=== PATIENT | male | born 1960 | race Hispanic/Latino ===

== ENCOUNTER → 2019-07-11 | Outpatient (CLI) | payer BC | END | disposition home or self-care (01) | LOC: RAH 11:01 | PROVIDERS: ATTEND Family Medicine | DX: M47.892 Other spondylosis, cervical region (principal); M99.79 Connective tissue and disc stenosis of intervertebral foramina of abdomen and other regions; H70.91 Unspecified mastoiditis, right ear | CPT/HCPCS: 72125 ==

== ENCOUNTER 2019-09-20 14:00 | Inpatient (IN) | payer BC ==
[~2019-09-20] VITALS: Ht 172.7 cm; Wt 86.0 kg
[2019-09-20 12:45] VITALS: BP 153/70; PULSE 69; RESP 17; TEMP 97
[2019-09-25] VITALS (14 sets, daily range): BP systolic 122–186; BP diastolic 45–69; PULSE 67–97; RESP 11–29; TEMP 98–98.9; O2SAT 98–100
[2019-09-25] MEDS: CEFUROXIME SODIUM 1.5 GM VIAL IVP SCH ×2 (06:00→14:45)
[2019-09-25] MEDS ORDERED: EPINEPHRINE 10 MG in SODIUM CHLORIDE 0.9% 240 ML IV PRN (06:30)
[2019-09-25] MEDS ORDERED: NOREPINEPHRINE BITARTRATE 8 MG in DEXTROSE 5%-WATER 250 ML IV PRN ×2 (06:30→17:45)
[2019-09-25] MEDS ORDERED: AMINOCAPROIC ACID 15,000 MG in SODIUM CHLORIDE 0.9% 500ML 420 ML IV PRN (06:30)
[2019-09-25] MEDS ORDERED: SODIUM CHLORIDE 0.9% 1000ML 1,000 ML IV ONE (06:42)
--- NOTE | 2019-09-25 07:04 | NUR ---
potential for infection: clipped from chin to bilateral feet per anne-marie verduzco as per orders, followed by wiping with rachelle: 2% chlorhexidine gluconate cloth patients pre-op skin prep.
[2019-09-25] MEDS ORDERED: NITROGLYCERIN 50 MG/D5% WATER 1 BOT ONE ×2 (09:09→17:46)
[2019-09-25] MEDS ORDERED: AMINOCAPROIC ACID 250 MG/ML 20 ML VIAL IV ONE (14:42)
[2019-09-25] MEDS ORDERED: ESMOLOL HCL 10 MG/ML 10 ML VIAL ONE (14:42)
[2019-09-25] MEDS ORDERED: PROTAMINE SULFATE 10 MG/ML 25ML VIAL IV ONE (14:42)
[2019-09-25] MEDS ORDERED: LIDOCAINE PF 2% 5ML ABBOJECT ONE (14:42)
[2019-09-25] MEDS ORDERED: NOREPINEPHRINE BITARTRATE 1 MG/1 ML ML IV ONE (14:42)
[2019-09-25] MEDS ORDERED: EPINEPHRINE 1 MG/ML AMPULE ONE (14:42)
[2019-09-25] MEDS ORDERED: HEPARIN SODIUM 1000UNIT/ML 10ML VIAL ONE (14:42)
[2019-09-25] MEDS ORDERED: SODIUM BICARB 50MEQ 50ML VIAL ONE (14:42)
[2019-09-25] MEDS ORDERED: ROCURONIUM 10MG/1ML SYR 10 MG/ML ML ONE (14:43)
[2019-09-25] MEDS ORDERED: VASOPRESSIN 20 UNITS/ML 1ML VIAL ONE (14:43)
[2019-09-25] MEDS ORDERED: FENTANYL CITRATE PF 50 MCG/1 ML 20ML VIAL IJ ONE (14:43)
[2019-09-25] MEDS ORDERED: MIDAZOLAM HCL 1 MG/ML 2ML VIAL ONE (14:43)
[2019-09-25] MEDS ORDERED: PROPOFOL 10 MG/ML 20ML VIAL IV ONE (14:43)
[2019-09-25] MEDS ORDERED: AMIODARONE HCL 50 MG/ML 3 ML VIAL ONE (14:44)
[2019-09-25] MEDS ORDERED: ETOMIDATE 2 MG/ML 10 ML VIAL ONE (14:44)
[2019-09-25] MEDS ORDERED: PAPAVERINE HCL 30 MG/ML 2ML VIAL ONE (15:19)
[2019-09-25] MEDS ORDERED: CEFAZOLIN SODIUM 1 GM VIAL ONE (15:19)
[2019-09-25] MEDS ORDERED: OCTYL 2-CYANOACRYLATE 1 EACH TP ONE (15:19)
[2019-09-25] MEDS ORDERED: FENTANYL CITRATE PF 50 MCG/1 ML 5ML AMP IV ONE (17:04)
[2019-09-25] MEDS ORDERED: SODIUM CHLORIDE 0.9% 500ML 500 ML IV SCH (17:10)
[2019-09-25] MEDS ORDERED: POTASSIUM CHLORIDE 20MEQ/100ML 200 ML IV ONE (17:14)
[2019-09-25] MEDS ORDERED: EPINEPHRINE 10 MG in DEXTROSE 5%-WATER 250 ML IV PRN (17:15)
[2019-09-25] MEDS ORDERED: POTASSIUM PHOS 15 mMOL+NS250ML 250 ML IV PRN (17:15)
[2019-09-25] MEDS ORDERED: ALBUMIN (HUMAN) 5% 250 ML IV PRN (17:15)
[2019-09-25] MEDS ORDERED: NOREPINEPHRINE 4MG/NS 250ML 250 ML IV PRN (17:15)
[2019-09-25] MEDS ORDERED: INSULIN REGULAR, HUMAN 3ML 100 UNIT in SODIUM CHLORIDE 0.9% 99 ML IV SCH (17:15)
[2019-09-25] MEDS ORDERED: TRAMADOL HCL 50 MG TABLET PO PRN (17:15)
[2019-09-25] MEDS ORDERED: SODIUM CHLORIDE 0.9% 1000ML 1,000 ML IV SCH (17:15)
[2019-09-25] MEDS ORDERED: MAGNESIUM 2GM PREMIX 50ML 50 ML IV PRN (17:15)
[2019-09-25] MEDS ORDERED: GLUCAGON 1MG KIT 1 MG ML IM PRN (17:15)
[2019-09-25] MEDS ORDERED: SODIUM CHLORIDE 0.9% 250 ML IV PRN (17:15)
[2019-09-25] MEDS ORDERED: AMINOCAPROIC ACID 15,000 MG in SODIUM CHLORIDE 0.9% 250 ML IV SCH (17:15)
[2019-09-25] MEDS ORDERED: SODIUM CHLORIDE 0.9% 10 ML VIAL IVP PRN (17:15)
[2019-09-25] MEDS ORDERED: MORPHINE SULFATE 2 MG/ML 1ML SYG IV PRN ×2 (17:15)
[2019-09-25] MEDS ORDERED: DEXTROSE 50%-WATER 50 ML DISP.SYRIN IV PRN (17:15)
[2019-09-25] MEDS ORDERED: PROPOFOL 1000 MG/100 ML 100 ML IV PRN (17:15)
[2019-09-25] MEDS ORDERED: ACETAMINOPHEN 650 MG SUPPOSITORY RC PRN (17:15)
--- NOTE | 2019-09-25 17:35 | NUR ---
Patient arrived from OR at 1735 into room 213 intubated and sedated with chest tubes and aguilar in place. RIJ has Epi running at 0.02 mcg/kg/min, Levofed at 0.053 mcg/kg/min and amicar at 75 ml/hr. Vital signs as charted.
[2019-09-25] MEDS ORDERED: CALCIUM GLUCONATE 1 GM/10 ML VIAL IV ONE (18:59)
[2019-09-25] MEDS: POTASSIUM CHLORIDE 20MEQ/100ML 100 ML IV PRN ×2 (19:09→22:07)
[2019-09-25] MEDS: CEFAZOLIN SODIUM 1 GM VIAL IV SCH (21:47)
[2019-09-25] MEDS: FAMOTIDINE/PF 20 MG/2 ML VIAL IV SCH (21:47)
[2019-09-25] MEDS: SODIUM BICARB 50MEQ 50ML VIAL IV PRN (21:52)
[2019-09-25] MEDS: ATORVASTATIN CALCIUM 10 MG TABLET PO SCH (22:05)
[2019-09-25] MEDS: TRAMADOL HCL 50 MG TABLET PO PRN (22:06)
[2019-09-25] MEDS: ONDANSETRON HCL 4 MG/2 ML VIAL IV PRN (22:20)
[2019-09-25] MEDS: ACETAMINOPHEN 325 MG TAB PO PRN (23:40)
[2019-09-26] VITALS (63 sets, daily range): BP systolic 113–167; BP diastolic 52–86; PULSE 75–100; RESP 12–47; TEMP 98.2–98.9; O2SAT 96–100
[2019-09-26] MEDS ORDERED: CALCIUM GLUCONATE 1 GM/10 ML VIAL IV ONE ×2 (04:26)
[2019-09-26] MEDS: TRAMADOL HCL 50 MG TABLET PO PRN ×3 (04:34→21:57)
[2019-09-26] MEDS: CEFAZOLIN SODIUM 1 GM VIAL IV SCH ×2 (05:50→14:22)
[2019-09-26] MEDS: CEFUROXIME SODIUM 1.5 GM VIAL IVP SCH (06:00)
[2019-09-26] MEDS: ONDANSETRON HCL 4 MG/2 ML VIAL IV PRN (06:07)
--- NOTE | 2019-09-26 07:55 | NUR ---
DC Plan Met with patient. Currently sitting up in chair. Informed patient purpose of meeting was to discuss discharge plan and patient goals. Patient states lives with Elizabeth. Prior to surgery, patient independently performed ADLs. Denies any HH, DME, or provider services. Patient states discharge plan is to return home with . Informed patient CM will revisit once patient lines/tubes have been removed to ensure plan has not changed. Patient verbalized understanding. Asked patient if there were any other questions or concerns. Patient verbalized was in pain. CM notified bedside nurse of patient's report of pain. No further questions or concerns were verbalized. Tentative dc plan is to home with . CD Addendum: 09/26/19 at 0910 by HONEY YING CM Amended: Links added.
[2019-09-26] MEDS: FAMOTIDINE/PF 20 MG/2 ML VIAL IV SCH ×2 (08:37→21:42)
[2019-09-26] MEDS: FUROSEMIDE 10 MG/ML 2ML VIAL IV SCH ×2 (08:37→21:42)
[2019-09-26] MEDS: ACETAMINOPHEN 325 MG TAB PO PRN ×2 (08:40→10:02)
[2019-09-26] MEDS ORDERED: METOPROLOL TARTRATE 25 MG TAB PO SCH (09:00)
[2019-09-26] MEDS ORDERED: KETOROLAC TROMETHAMINE 30MG/ML ONE (09:58)
[2019-09-26] MEDS: ASPIRIN 325MG EC TAB 325 MG TABLET.DR PO SCH (10:01)
--- NOTE | 2019-09-26 12:00 | NUR ---
DR. REINA CONTACTED AT 0833 DUE TO PT CONTINUING TO HAVE SEVERE PAIN 01/12 EVEN AFTER ADMINISTRATION OF TRAMADOL 100MG. ORDERS FOR TORADOL 30MG IVQ6 WERE GIVEN. PT MEDICATED AND REPORTED LESS PAIN.
[2019-09-26] MEDS: CALCIUM GLUCONATE 1 GM in SODIUM CHLORIDE 0.9% 50 ML IV PRN ×2 (16:40→17:40)
[2019-09-26] MEDS: KETOROLAC TROMETHAMINE 30MG/ML IV PRN (17:44)
[2019-09-26] MEDS: ATORVASTATIN CALCIUM 10 MG TABLET PO SCH (21:42)
[2019-09-26] MEDS: METOPROLOL TARTRATE 25 MG TAB PO SCH (21:42)
[2019-09-27] VITALS (27 sets, daily range): BP systolic 113–184; BP diastolic 50–99; PULSE 69–91; RESP 11–27; TEMP 98.1–99.1; O2SAT 95–100
[2019-09-27] MEDS: KETOROLAC TROMETHAMINE 30MG/ML IV PRN ×3 (01:40→18:33)
[2019-09-27] MEDS: NITROGLYCERIN 50 MG/D5% WATER 250 BOT IV SCH (01:58)
[2019-09-27] MEDS: FAMOTIDINE 20MG TAB 20 MG TAB PO SCH ×2 (08:27→20:14)
[2019-09-27] MEDS: FUROSEMIDE 20 MG TABLET PO SCH ×2 (08:27→17:32)
[2019-09-27] MEDS: ASPIRIN 325MG EC TAB 325 MG TABLET.DR PO SCH (08:27)
[2019-09-27] MEDS: METOPROLOL TARTRATE 25 MG TAB PO SCH ×2 (08:28→20:14)
[2019-09-27] MEDS: TRAMADOL HCL 50 MG TABLET PO PRN (08:29)
[2019-09-27] MEDS ORDERED: METOPROLOL TARTRATE 25 MG TAB PO SCH (09:00)
[2019-09-27] MEDS: ACETAMINOPHEN 325 MG TAB PO PRN (17:33)
[2019-09-27] MEDS: ONDANSETRON HCL 4 MG/2 ML VIAL IV PRN (18:33)
[2019-09-27] MEDS: ATORVASTATIN CALCIUM 10 MG TABLET PO SCH (20:15)
[2019-09-28] VITALS (21 sets, daily range): BP systolic 116–169; BP diastolic 48–83; PULSE 70–91; RESP 13–24; TEMP 98–99.1; O2SAT 89–99
[2019-09-28] MEDS: KETOROLAC TROMETHAMINE 30MG/ML IV PRN ×2 (04:30→12:25)
[2019-09-28] MEDS: METOPROLOL TARTRATE 25 MG TAB PO SCH ×2 (06:46→21:43)
[2019-09-28] MEDS: NITROGLYCERIN 50 MG/D5% WATER 250 BOT IV SCH (08:04)
[2019-09-28] MEDS: FAMOTIDINE 20MG TAB 20 MG TAB PO SCH ×2 (08:47→21:43)
[2019-09-28] MEDS: FUROSEMIDE 20 MG TABLET PO SCH ×2 (08:47→17:34)
[2019-09-28] MEDS: ASPIRIN 325MG EC TAB 325 MG TABLET.DR PO SCH (08:47)
[2019-09-28] MEDS: ACETAMINOPHEN 325 MG TAB PO PRN ×2 (08:48→17:39)
[2019-09-28] MEDS: ENOXAPARIN SODIUM 30 MG/0.3 ML SQ SCH (09:00)
[2019-09-28] MEDS ORDERED: FUROSEMIDE 20 MG TABLET PO SCH (18:00)
[2019-09-28] MEDS: ATORVASTATIN CALCIUM 10 MG TABLET PO SCH (21:43)
[2019-09-29] VITALS: BP 129/80; PULSE 84; RESP 19; TEMP 98.9
[2019-09-29] MEDS: TRAMADOL HCL 50 MG TABLET PO PRN (02:10)
[2019-09-29 04:00] VITALS: BP 156/81; PULSE 85; RESP 19; TEMP 99.6
[2019-09-29 07:00] VITALS: BP 151/74; PULSE 82; RESP 20; TEMP 98.3
--- NOTE | 2019-09-29 07:30 | NUR ---
ASSESSMENT ENCOUNTERED PT A&OX3, CALM COOPERATIVE AND DOES NOT APPEAR TO BE IN ANY DISTRESS NOR ANY NEURO DEFICITS PRESENT. PT DENIES PAIN ,SOB, NAUSEA. STERNAL AND CHEST TUBE INCISION SITES DRY AND INTACT, PT IS AMBULATORY, GAIT STEADY AND STRONG WITH STAND BY ASSIST, INCENTIVE SPIROMETRY AVERAGE OF 1000ML PER ATTEMPT, PT INFORMED TO INCREASE TO 10 TIMES EVERY 30 MINUTES WITH A GOAL OF 1500ML BY END OF SHIFT. CALL LIGHT WITHIN REACH.
[2019-09-29] MEDS: METOPROLOL TARTRATE 25 MG TAB PO SCH ×2 (09:54→22:29)
[2019-09-29] MEDS: FUROSEMIDE 20 MG TABLET PO SCH ×2 (09:54→17:19)
[2019-09-29] MEDS: ENOXAPARIN SODIUM 30 MG/0.3 ML SQ SCH (09:54)
[2019-09-29] MEDS: ASPIRIN 325MG EC TAB 325 MG TABLET.DR PO SCH (09:54)
[2019-09-29] MEDS: FAMOTIDINE 20MG TAB 20 MG TAB PO SCH ×2 (09:54→22:29)
[2019-09-29 11:00] VITALS: BP 157/73; PULSE 96; RESP 20; TEMP 98.1
[2019-09-29 16:00] VITALS: BP 141/69; PULSE 87; RESP 20; TEMP 98
[2019-09-29 20:00] VITALS: BP 176/82; PULSE 88; RESP 19; TEMP 98.7
[2019-09-29] MEDS: ATORVASTATIN CALCIUM 10 MG TABLET PO SCH (22:29)
[2019-09-30] VITALS: BP 160/93; PULSE 74; RESP 19; TEMP 98.4
[2019-09-30 04:00] VITALS: BP 142/86; PULSE 68; RESP 18; TEMP 98.2
[2019-09-30 07:24] VITALS: BP 162/75; PULSE 78; RESP 18; TEMP 96.8
--- NOTE | 2019-09-30 07:30 | NUR ---
ASSESSMENT ENCOUNTERED PT AMBULATING IN HALLWAY, GAIT STEADY AND STRONG WITH STAND BY ASSIST, A&OX3, CALM COOPERATIVE AND DOES NOT APPEAR TO BE IN ANY DISTRESS NOR ANY NEURO DEFICITS PRESENT. PT DENIES PAIN, SOB,NAUSEA. STERNAL AND CHEST TUBE INCISION SITES DRY AND INTACT, INCENTIVE SPIROMETRY UP TO 1250 AVERAGE PER ATTEMPT. CALL LIGHT WITHIN REACH.
[2019-09-30] MEDS: METOPROLOL TARTRATE 25 MG TAB PO SCH (08:15)
[2019-09-30] MEDS: ENOXAPARIN SODIUM 30 MG/0.3 ML SQ SCH (08:16)
[2019-09-30] MEDS: FAMOTIDINE 20MG TAB 20 MG TAB PO SCH (08:16)
[2019-09-30] MEDS: ASPIRIN 325MG EC TAB 325 MG TABLET.DR PO SCH (08:16)
[2019-09-30] MEDS: FUROSEMIDE 20 MG TABLET PO SCH (08:16)
--- NOTE | 2019-09-30 12:00 | NUR ---
DISCHARGE INSTRUCTIONS GIVEN, CHEST TUBE SUTURES REMOVED, STERI STRIPS APPLIED, PIV REMOVED AND INTACT, DISCHARGED HOME TO FAMILY VEHICLE VIA WHEELCHAIR.
== END 2019-09-30 12:40 | disposition home or self-care (01) | DRG 236 ==
LOC: EDSTATUS 14:00 → DAHIP 09-25 05:57 → 2CV 09-25 15:24 → 2CH 09-26 03:46 → 4AH 09-28 20:38
PROVIDERS: ADMIT Thoracic Surgery (Cardiothoracic Vascular Surgery); ATTEND Thoracic Surgery (Cardiothoracic Vascular Surgery)
PROC: 05H333Z Insertion of Infusion Device into Right Innominate Vein, Percutaneous Approach (ICD-10-PCS; 2019-09-25)
PROC: 02100Z9 Bypass Coronary Artery, One Artery from Left Internal Mammary, Open Approach (ICD-10-PCS; principal; 2019-09-25 07:30)
PROC: 021009W Bypass Coronary Artery, One Artery from Aorta with Autologous Venous Tissue, Open Approach (ICD-10-PCS; 2019-09-25 07:30)
PROC: 06BP4ZZ Excision of Right Saphenous Vein, Percutaneous Endoscopic Approach (ICD-10-PCS; 2019-09-25 07:30)
DX: I25.10 Atherosclerotic heart disease of native coronary artery without angina pectoris (principal); E78.00 Pure hypercholesterolemia, unspecified; E87.70 Fluid overload, unspecified; E78.1 Pure hyperglyceridemia; Z20.828 Contact with and (suspected) exposure to other viral communicable diseases; I10 Essential (primary) hypertension; Z79.899 Other long term (current) drug therapy

== ENCOUNTER 2019-11-13 00:07 | Emergency (ER) | payer BC ==
[~2019-11-13 00:07] MED LIST: ASPI-891 PO; ATOR10 PO; FURO20TA6 PO; METO25 PO; TRAM50TA4 PO
[2019-11-13] MEDS ORDERED: LIDOCAINE 5% TOPICAL PATCH TP ONE (00:58)
[2019-11-13] MEDS ORDERED: ACETAMINOPHEN 325 MG TAB ONE ×2 (00:58→01:01)
[2019-11-13 01:18] LABS: BASOPHILS % (AUTO) 0.8 % (0.0-5.0); EOSINOPHILS % (AUTO) 6.5 % (0.0-8.0); HEMATOCRIT 39.2 % (42-54); LYMPHOCYTES % (AUTO) 26.4 % (21.0-51.0); MEAN CORPUSCULAR HEMOGLOBIN 28.8 pg (27.0-33.0); MEAN CORPUSCULAR HGB CONC 33.2 g/dL (32.0-36.0); MEAN CORPUSCULAR VOLUME 86.7 fL (79-99); MONOCYTES % (AUTO) 10.3 % (3.0-13.0); NEUTROPHILS % (AUTO) 55.8 % (40.0-77.0); PLATELET COUNT (AUTO) 268 K/uL (130-400); RED BLOOD CELL COUNT(AUTO) 4.52 MIL/uL (4.50-6.20); RED CELL DISTRIBUTION WIDTH 13.9 % (11.0-15.5); WHITE BLOOD COUNT (AUTO) 9.1 K/uL (4.8-10.8)
[2019-11-13 01:25] LABS: CREATININE 0.9 mg/dL (0.5-1.5)
[2019-11-13 01:29] LABS: BILIRUBIN,TOTAL 0.3 mg/dL (0.2-1.0); TOTAL PROTEIN, SERUM 8.3 g/dL (6.0-8.3)
[2019-11-13 01:42] LABS: B-TYPE NATRIURETIC PEPTIDE 76 pg/mL (0-100)
[2019-11-13] MEDS ORDERED: IOHEXOL-350 75 ML VIAL IV ONE (02:32)
== END 2019-11-13 04:19 | disposition home or self-care (01) ==
LOC: EDH 00:07
DX: M62.838 Other muscle spasm (principal); R09.1 Pleurisy
CPT/HCPCS: 36415; 71046; 71275; 80053; 82550; 83690; 83880; 84484; 85025; 85378; 93005 ×2; 99285; Q9967

== ENCOUNTER 2020-10-14 13:40 | Observation (INO) | payer BC ==
[~2020-10-14] VITALS: Ht 172.7 cm; Wt 83.8 kg
[2020-10-14 13:59] VITALS: BP 155/83
[2020-10-14] MEDS ORDERED: NITROGLYCERIN 1GM OINT 1 INCH/1GM TD ONE ×2 (14:00→15:03)
[2020-10-14] MEDS ORDERED: NITROGLYCERIN 0.4 MG SL TAB SL PRN (14:00)
[2020-10-14 14:13] LABS: BASOPHILS % (AUTO) 0.6 % (0.0-5.0); EOSINOPHILS % (AUTO) 6.1 % (0.0-8.0); HEMATOCRIT 41.3 % (42-54); LYMPHOCYTES % (AUTO) 26.3 % (21.0-51.0); MEAN CORPUSCULAR HEMOGLOBIN 30.6 pg (27.0-33.0); MEAN CORPUSCULAR HGB CONC 33.4 g/dL (32.0-36.0); MEAN CORPUSCULAR VOLUME 91.6 fL (79-99); NEUTROPHILS % (AUTO) 49.8 % (40.0-77.0); PLATELET COUNT (AUTO) 208 K/uL (130-400); RED BLOOD CELL COUNT(AUTO) 4.51 MIL/uL (4.50-6.20); RED CELL DISTRIBUTION WIDTH 13.5 % (11.0-15.5); WHITE BLOOD COUNT (AUTO) 5.4 K/uL (4.8-10.8)
[2020-10-14 14:24] LABS: CREATININE 0.8 mg/dL (0.5-1.5); POTASSIUM 4.5 mmol/L (3.5-5.1)
[2020-10-14 14:25] LABS: INR 0.93 (0.85-1.15); PROTHROMBIN TIME 10.2 SEC (9.6-11.6)
[2020-10-14 14:27] LABS: PARTIAL THROMBOPLASTIN TIME 24.8 SEC (26.3-35.5)
[2020-10-14 14:28] LABS: ALBUMIN 3.8 g/dL (3.5-5.0); BILIRUBIN,TOTAL 0.3 mg/dL (0.2-1.0); TOTAL PROTEIN, SERUM 7.4 g/dL (6.0-8.3)
[2020-10-14 14:39] LABS: B-TYPE NATRIURETIC PEPTIDE 24 pg/mL (0-100)
[2020-10-14] MEDS ORDERED: ACETAMINOPHEN 500 MG TABLET ONE (16:17)
[2020-10-14] MEDS ORDERED: ACETAMINOPHEN 500 MG TABLET PO ONE (16:30)
[2020-10-14] MEDS ORDERED: ASPIRIN 81MG CHEW TAB PO ONE (17:00)
[2020-10-14 17:14] LABS: HEMOGLOBIN A1C 5.6 % (4.0-6.0)
[2020-10-14 17:32] LABS: ALCOHOL, BLOOD < 3 mg/dL (0-10); CHOLESTEROL 196 mg/dL (<200); HDL CHOLESTEROL 55 mg/dL (29-71); LDL DIRECT 112 mg/dL (0-99); THYROID STIMULATING HORMONE 1.05 uIU/mL (0.36-3.74); TRIGLYCERIDES 204 mg/dL (30-200)
[2020-10-14] MEDS: METOPROLOL TARTRATE 25 MG TAB PO SCH (17:57)
[2020-10-14] MEDS: ASPIRIN 81MG CHEW TAB PO SCH (17:57)
[2020-10-14] MEDS ORDERED: LORAZEPAM 2 MG/ML 1 ML VIAL IVP PRN (18:00)
[2020-10-14] MEDS ORDERED: THIAMINE HCL 100 MG, FOLIC ACID 1 MG, M.V.I. IV [ADULT] 10 ML in 0.9%NACL 1000ML 1,000 ML IV SCH (18:00)
[2020-10-14] MEDS ORDERED: CHLORDIAZEPOXIDE HCL 25 MG CAP PO PRN (18:00)
[2020-10-14] MEDS ORDERED: PHARMACY COMMUNICATION MISC PRN (18:00)
[2020-10-14 22:57] VITALS: BP 132/72
[2020-10-15] VITALS (8 sets, daily range): BP systolic 144–164; BP diastolic 68–87
[2020-10-15 08:43] LABS: BASOPHILS % (AUTO) 0.8 % (0.0-5.0); EOSINOPHILS % (AUTO) 1.4 % (0.0-8.0); HEMATOCRIT 41.8 % (42-54); LYMPHOCYTES % (AUTO) 24.3 % (21.0-51.0); MEAN CORPUSCULAR HEMOGLOBIN 30.7 pg (27.0-33.0); MEAN CORPUSCULAR HGB CONC 33.5 g/dL (32.0-36.0); MEAN CORPUSCULAR VOLUME 91.7 fL (79-99); MONOCYTES % (AUTO) 22.1 % (3.0-13.0); PLATELET COUNT (AUTO) 189 K/uL (130-400); RED BLOOD CELL COUNT(AUTO) 4.56 MIL/uL (4.50-6.20); RED CELL DISTRIBUTION WIDTH 13.4 % (11.0-15.5); WHITE BLOOD COUNT (AUTO) 4.9 K/uL (4.8-10.8)
[2020-10-15 08:54] LABS: CREATININE 0.9 mg/dL (0.5-1.5); POTASSIUM 4.7 mmol/L (3.5-5.1)
[2020-10-15] MEDS: LOSARTAN 25 MG TABLET PO SCH (10:15)
[2020-10-15] MEDS: ASPIRIN 81MG CHEW TAB PO SCH (10:15)
[2020-10-15] MEDS: METOPROLOL TARTRATE 25 MG TAB PO SCH (10:15)
[2020-10-15] MEDS ORDERED: IOHEXOL 350 MG/ML 100ML INFUS..BTL IV ONE (10:21)
[2020-10-15] MEDS ORDERED: AEC81 PO (12:30)
[2020-10-15] MEDS ORDERED: METO50TA18 PO (12:30)
[2020-10-15] MEDS ORDERED: FOLIC ACID 1 MG TABLET PO SCH (14:30)
[2020-10-15] MEDS ORDERED: ISOSORBIDE MONO 30MG SR TAB PO SCH (21:00)
[2020-10-15] MEDS: METOPROLOL TARTRATE 50 MG TAB PO SCH (22:05)
[2020-10-15 22:13] LABS: AMPHET/METH SCREEN,URINE NEGATIVE (NEGATIVE); BARBITURATE SCREEN, URINE NEGATIVE (NEGATIVE); BENZODIAZEPINES SCREEN,URINE NEGATIVE (NEGATIVE); CANNABINOID SCREEN,URINE NEGATIVE (NEGATIVE); COCAINE SCREEN,URINE NEGATIVE (NEGATIVE); OPIATE SCREEN,URINE NEGATIVE (NEGATIVE); PHENCYCLIDINE SCREEN,URINE NEGATIVE (NEGATIVE)
[2020-10-16 00:04] VITALS: BP 144/76
[2020-10-16 04:04] VITALS: BP 121/68
[2020-10-16 06:18] LABS: BASOPHILS % (AUTO) 0.8 % (0.0-5.0); EOSINOPHILS % (AUTO) 6.3 % (0.0-8.0); HEMATOCRIT 39.1 % (42-54); LYMPHOCYTES % (AUTO) 39.7 % (21.0-51.0); MEAN CORPUSCULAR HGB CONC 33.2 g/dL (32.0-36.0); MEAN CORPUSCULAR VOLUME 90.1 fL (79-99); MONOCYTES % (AUTO) 20.8 % (3.0-13.0); PLATELET COUNT (AUTO) 186 K/uL (130-400); RED BLOOD CELL COUNT(AUTO) 4.34 MIL/uL (4.50-6.20); RED CELL DISTRIBUTION WIDTH 13.2 % (11.0-15.5)
[2020-10-16 06:33] LABS: CREATININE 0.9 mg/dL (0.5-1.5)
[2020-10-16 07:08] VITALS: BP 149/80
[2020-10-16] MEDS ORDERED: 0.9%NACL 1000ML 1,000 ML IV ONE (08:00)
[2020-10-16] MEDS ORDERED: PANTOPRAZOLE 40 MG/VIAL IVP SCH (09:00)
[2020-10-16] MEDS ORDERED: THIAMINE HCL 100 MG TABLET PO SCH (09:00)
[2020-10-16] MEDS: METOPROLOL TARTRATE 50 MG TAB PO SCH (10:13)
[2020-10-16] MEDS: LOSARTAN 25 MG TABLET PO SCH (10:14)
[2020-10-16 10:57] VITALS: BP 138/73
[2020-10-16] MEDS ORDERED: ISOS10TA8 PO (17:39)
[2020-10-16] MEDS ORDERED: PANT40TA54 PO (17:39)
== END 2020-10-16 19:11 | disposition home or self-care (01) ==
LOC: EDH 13:40 → EDHIP 16:32 → INTOOBSV 16:32 → 4BH 10-15 09:18
PROVIDERS: ADMIT Internal Medicine; ATTEND Internal Medicine
DX: I24.9 Acute ischemic heart disease, unspecified (principal); I10 Essential (primary) hypertension; E11.9 Type 2 diabetes mellitus without complications; R10.12 Left upper quadrant pain; R19.7 Diarrhea, unspecified; I25.10 Atherosclerotic heart disease of native coronary artery without angina pectoris; I51.7 Cardiomegaly; E78.00 Pure hypercholesterolemia, unspecified; E78.5 Hyperlipidemia, unspecified; F10.10 Alcohol abuse, uncomplicated; R07.89 Other chest pain; R79.89 Other specified abnormal findings of blood chemistry; Z95.1 Presence of aortocoronary bypass graft; Z79.82 Long term (current) use of aspirin; Z87.891 Personal history of nicotine dependence; Z79.899 Other long term (current) drug therapy; Z98.890 Other specified postprocedural states
CPT/HCPCS: 36415 ×3; 71045; 71046; 74176; 74178; 78579; 80048 ×2; 80053; 80061; 80305; 82550; 82948; 83036; 83690; 83880; 84145; 84443; 84484 ×3; 85025 ×3; 85378; 85610; 85730; 93005; 93970; 96361 ×2; 96365; 96366 ×2; 96375; 99285; A9558; C9113; G0378 ×30; J3411; J3490; J7030; Q9967

== ENCOUNTER 2021-12-07 22:33 | Inpatient (IN) | payer BC ==
[~2021-12-07] VITALS: Ht 172.7 cm; Wt 83.7 kg
[~2021-12-07 22:33] MED LIST changes: +AEC81 PO; -ASPI-891 PO; -FURO20TA6 PO; +ISOS10TA8 PO; -METO25 PO; +METO50TA18 PO; +PANT40TA54 PO; -TRAM50TA4 PO
[2021-12-07] MEDS ORDERED: PROMETHAZINE HCL 25 MG/ML 1ML AMPULE IVPB SCH (23:00)
[2021-12-07] MEDS ORDERED: 0.9%NACL 1000ML 1,000 ML IV SCH (23:00)
[2021-12-07] MEDS ORDERED: ACETAMINOPHEN 500 MG TABLET PO ONE (23:00)
[2021-12-07] MEDS ORDERED: IBUPROFEN 800 MG TAB PO ONE (23:00)
[2021-12-07 23:15] LABS: BASOPHILS % (AUTO) 0.3 % (0.0-5.0); EOSINOPHILS % (AUTO) 0.5 % (0.0-8.0); HEMATOCRIT 42.4 % (42-54); MEAN CORPUSCULAR HGB CONC 35.1 g/dL (32.0-36.0); MEAN CORPUSCULAR VOLUME 88.1 fL (79-99); MONOCYTES % (AUTO) 6.4 % (3.0-13.0); NEUTROPHILS % (AUTO) 86.4 % (40.0-77.0); PLATELET COUNT (AUTO) 195 K/uL (130-400); RED BLOOD CELL COUNT(AUTO) 4.81 MIL/uL (4.50-6.20); RED CELL DISTRIBUTION WIDTH 13.2 % (11.0-15.5); WHITE BLOOD COUNT (AUTO) 18.4 K/uL (4.8-10.8)
[2021-12-07 23:26] LABS: APPEARANCE,URINE CLEAR (CLEAR); BILIRUBIN,URINE NEGATIVE (NEGATIVE); COLOR,URINE YELLOW (YELLOW); GLUCOSE, URINE (UA) NEGATIVE (NEGATIVE); KETONES,URINE 15 mg/dL (NEGATIVE); LEUKOCYTE ESTERASE ,URINE NEGATIVE (NEGATIVE); NITRATE,URINE NEGATIVE (NEGATIVE); OCCULT BLOOD,URINE NEGATIVE (NEGATIVE); PH,URINE 8.5 (5.0-8.0); PROTEIN,URINE NEGATIVE (NEGATIVE); UROBILINOGEN,URINE 0.2 mg/dL (0.2-1.0)
[2021-12-07 23:27] LABS: CREATININE 1.1 mg/dL (0.5-1.5); POTASSIUM 3.6 mmol/L (3.5-5.1)
[2021-12-07 23:32] LABS: ALBUMIN 4.2 g/dL (3.5-5.0); CRP QUANTITATIVE 7.3 mg/L (0.00-9.0)
[2021-12-08] MEDS ORDERED: 0.9%NACL 1000ML 2,052 ML IV ONE ×2
[2021-12-08] MEDS ORDERED: ACETAMINOPHEN 325 MG TAB PO PRN
[2021-12-08] MEDS ORDERED: MORPHINE 2 MG SYG IV PRN
[2021-12-08] MEDS ORDERED: AZITHROMYCIN 250 MG TABLET PO ONE
[2021-12-08] MEDS ORDERED: ONDANSETRON 4MG INJ IV PRN
[2021-12-08] MEDS ORDERED: MORPHINE 4 MG SYG IV PRN
[2021-12-08] MEDS ORDERED: CEFTRIAXONE 1G VIAL IVP ONE
[2021-12-08 01:15] VITALS: BP 143/64
[2021-12-08] MEDS ORDERED: SODIUM CHLORIDE 3% FOR INHALATION 4 ML/AMP VIAL.NEB IH ONE ×2 (01:35→07:07)
[2021-12-08] MEDS ORDERED: ISOS30TA92 PO (01:48)
[2021-12-08] MEDS: 0.9%NACL 1000ML 1,000 ML IV SCH ×2 (02:04→13:19)
[2021-12-08 04:00] VITALS: BP 122/62
[2021-12-08] MEDS: ZOSYN 3.375GM+NS 50ML 50 ML IV SCH ×3 (04:07→20:14)
[2021-12-08 04:37] LABS: BASOPHILS % (AUTO) 0.1 % (0.0-5.0); HEMATOCRIT 37.2 % (42-54); MEAN CORPUSCULAR HEMOGLOBIN 30.5 pg (27.0-33.0); MEAN CORPUSCULAR HGB CONC 33.9 g/dL (32.0-36.0); MEAN CORPUSCULAR VOLUME 90.1 fL (79-99); MONOCYTES % (AUTO) 5.6 % (3.0-13.0); NEUTROPHILS % (AUTO) 89.2 % (40.0-77.0); PLATELET COUNT (AUTO) 168 K/uL (130-400); RED BLOOD CELL COUNT(AUTO) 4.13 MIL/uL (4.50-6.20); RED CELL DISTRIBUTION WIDTH 13.4 % (11.0-15.5); WHITE BLOOD COUNT (AUTO) 20.6 K/uL (4.8-10.8)
[2021-12-08 04:41] LABS: CREATININE 0.9 mg/dL (0.5-1.5); MAGNESIUM 1.7 mg/dL (1.80-2.40); PHOSPHORUS 3.3 mg/dL (2.5-4.9); POTASSIUM 3.5 mmol/L (3.5-5.1)
[2021-12-08 08:00] VITALS: BP 132/64
[2021-12-08] MEDS: ENOXAPARIN SODIUM 40 MG/0.4 ML SYRINGE SQ SCH (08:14)
[2021-12-08] MEDS: FAMOTIDINE 20MG TAB PO SCH (08:14)
[2021-12-08 11:12] VITALS: BP 148/80
[2021-12-08 16:00] VITALS: BP 175/72
[2021-12-08 19:00] VITALS: BP 167/79
[2021-12-09] VITALS: BP 160/78
[2021-12-09] MEDS: 0.9%NACL 1000ML 1,000 ML IV SCH ×2 (02:56→15:35)
[2021-12-09 04:00] VITALS: BP 176/78
[2021-12-09] MEDS ORDERED: NIFEDIPINE 10 MG CAP PO ONE (05:00)
[2021-12-09] MEDS: ZOSYN 3.375GM+NS 50ML 50 ML IV SCH ×3 (05:13→20:08)
[2021-12-09 06:38] LABS: HEMATOCRIT 39.2 % (42-54); MEAN CORPUSCULAR HEMOGLOBIN 30.7 pg (27.0-33.0); MEAN CORPUSCULAR HGB CONC 34.2 g/dL (32.0-36.0); MEAN CORPUSCULAR VOLUME 89.9 fL (79-99); RED BLOOD CELL COUNT(AUTO) 4.36 MIL/uL (4.50-6.20); RED CELL DISTRIBUTION WIDTH 13.5 % (11.0-15.5); WHITE BLOOD COUNT (AUTO) 10.7 K/uL (4.8-10.8)
[2021-12-09 06:57] LABS: ALBUMIN 3.4 g/dL (3.5-5.0); CREATININE 0.8 mg/dL (0.5-1.5); POTASSIUM 3.4 mmol/L (3.5-5.1); TOTAL PROTEIN, SERUM 7.1 g/dL (6.0-8.3)
[2021-12-09 08:00] VITALS: BP 134/69
[2021-12-09] MEDS: METOPROLOL TARTRATE 50 MG TAB PO SCH ×2 (08:53→20:08)
[2021-12-09] MEDS: ASPIRIN 81 MG EC TAB PO SCH (08:53)
[2021-12-09] MEDS: ENOXAPARIN SODIUM 40 MG/0.4 ML SYRINGE SQ SCH (08:53)
[2021-12-09] MEDS: FAMOTIDINE 20MG TAB PO SCH (08:53)
[2021-12-09] MEDS ORDERED: KCL 20 MEQ ERTAB PO PRN (09:30)
[2021-12-09] MEDS ORDERED: MAGNESIUM 2GM PREMIX 50ML 50 ML IV PRN (09:30)
[2021-12-09] MEDS ORDERED: POTASSIUM CHLORIDE 10% ELIXIR 20 MEQ/15 ML UDCUP PO PRN (09:30)
[2021-12-09 12:00] VITALS: BP 129/65
[2021-12-09 16:00] VITALS: BP 120/72
[2021-12-09 20:00] VITALS: BP 151/72
[2021-12-09] MEDS ORDERED: ISOSORBIDE MONO 30MG SR TAB PO SCH (21:00)
[2021-12-10] VITALS: BP 164/77
[2021-12-10 03:48] LABS: HEMATOCRIT 35.8 % (42-54); MEAN CORPUSCULAR HEMOGLOBIN 30.7 pg (27.0-33.0); MEAN CORPUSCULAR HGB CONC 33.8 g/dL (32.0-36.0); MEAN CORPUSCULAR VOLUME 90.9 fL (79-99); RED BLOOD CELL COUNT(AUTO) 3.94 MIL/uL (4.50-6.20); RED CELL DISTRIBUTION WIDTH 13.2 % (11.0-15.5); WHITE BLOOD COUNT (AUTO) 6.7 K/uL (4.8-10.8)
[2021-12-10 03:55] LABS: CREATININE 0.8 mg/dL (0.5-1.5); POTASSIUM 3.6 mmol/L (3.5-5.1)
[2021-12-10 04:00] VITALS: BP 162/72
[2021-12-10] MEDS: ZOSYN 3.375GM+NS 50ML 50 ML IV SCH (04:31)
[2021-12-10] MEDS: 0.9%NACL 1000ML 1,000 ML IV SCH (04:32)
[2021-12-10 08:00] VITALS: BP 152/83
[2021-12-10] MEDS: METOPROLOL TARTRATE 50 MG TAB PO SCH (08:12)
[2021-12-10] MEDS: ASPIRIN 81 MG EC TAB PO SCH (08:12)
[2021-12-10] MEDS: FAMOTIDINE 20MG TAB PO SCH (08:12)
[2021-12-10] MEDS: ENOXAPARIN SODIUM 40 MG/0.4 ML SYRINGE SQ SCH (08:56)
[2021-12-10] MEDS ORDERED: AMOX1TAB16 PO (08:59)
== END 2021-12-10 11:17 | disposition home or self-care (01) | DRG 871 ==
LOC: EDH 22:33 → UNDOADMIN 23:25 → EDHIP 23:25 → 4DH 12-08 00:52 → EDHIP 12-08 00:52
PROVIDERS: ADMIT Hospitalist; ATTEND Hospitalist
DX: A41.9 Sepsis, unspecified organism (principal); J18.9 Pneumonia, unspecified organism; E86.0 Dehydration; I10 Essential (primary) hypertension; F17.210 Nicotine dependence, cigarettes, uncomplicated; Z20.822 Contact with and (suspected) exposure to COVID-19; Z95.1 Presence of aortocoronary bypass graft
CPT/HCPCS: 36415; 71045; 80048; 80053; 81003; 83605; 83735; 84100; 84145; 84484; 85025; 85027; 86140; 87040; 87071; 87205; 87635; 87804; 93005; 94640; C9803; G0378; J0696; J1650; J2543; J2550; J7030

== ENCOUNTER 2023-02-15 01:38 | Emergency (ER) | payer BC ==
[~2023-02-15] VITALS: Ht 172.7 cm; Wt 81.6 kg
[~2023-02-15 01:38] MED LIST changes: +AMOX1TAB16 PO; -ISOS10TA8 PO; +ISOS30TA92 PO
[2023-02-15 01:53] VITALS: BP 168/74; PULSE 82; RESP 18; O2SAT 98
[2023-02-15 02:03] LABS: BASOPHILS # (AUTO) 0.06 K/uL (0.00-0.20); BASOPHILS % (AUTO) 0.7 % (0.0-5.0); EOSINOPHILS # (AUTO) 0.43 K/uL (0.00-0.70); EOSINOPHILS % (AUTO) 4.7 % (0.0-8.0); HEMATOCRIT 42.9 % (42-54); IMMATURE GRANULOCYTE ABSOLUTE 0.03 K/uL (0-1); LYMPHOCYTES # (AUTO) 2.5 K/uL (1.0-4.8); LYMPHOCYTES % (AUTO) 26.9 % (21.0-51.0); MEAN CORPUSCULAR HEMOGLOBIN 30.8 pg (27.0-33.0); MEAN CORPUSCULAR VOLUME 90.5 fL (79-99); MONOCYTES % (AUTO) 11.3 % (3.0-13.0); NEUTROPHILS # (AUTO) 5.1 K/uL (1.8-7.7); NEUTROPHILS % (AUTO) 56.1 % (40.0-77.0); PLATELET COUNT (AUTO) 202 K/uL (130-400); RED BLOOD CELL COUNT(AUTO) 4.74 MIL/uL (4.50-6.20); RED CELL DISTRIBUTION WIDTH 12.9 % (11.0-15.5); WHITE BLOOD COUNT (AUTO) 9.1 K/uL (4.8-10.8)
[2023-02-15 02:12] LABS: RAPID GROUP A STREP negative (NEGATIVE)
[2023-02-15 02:17] LABS: CREATININE 0.7 mg/dL (0.5-1.5); POTASSIUM 4.1 mmol/L (3.5-5.1)
[2023-02-15 02:19] LABS: SARS-CoV-2, RNA, NAAT NEGATIVE SARS CoV-2 (NEGATIVE)
[2023-02-15 02:23] LABS: INFLUENZA TYPE A Negative For Type A (NEGATIVE); INFLUENZA TYPE B Negative For Type B (NEGATIVE)
[2023-02-15] MEDS ORDERED: DEXAMETHASONE SOD PHOSPHATE 4 MG/ML 1ML VIAL IVP ONE (03:30)
[2023-02-15] MEDS ORDERED: KETOROLAC 30MG VIAL (30MG/ML) IVP ONE (03:30)
[2023-02-15] MEDS ORDERED: KETO10 PO (03:33)
[2023-02-15] MEDS ORDERED: FAMO-136 PO (03:33)
[2023-02-15] MEDS ORDERED: METO-296 PO (03:33)
== END 2023-02-15 03:48 | disposition home or self-care (01) ==
LOC: EDH 01:38
DX: J03.80 Acute tonsillitis due to other specified organisms (principal); B97.89 Other viral agents as the cause of diseases classified elsewhere; I10 Essential (primary) hypertension; Z20.822 Contact with and (suspected) exposure to COVID-19; Z79.82 Long term (current) use of aspirin; Z79.899 Other long term (current) drug therapy; Z98.890 Other specified postprocedural states
CPT/HCPCS: 99284; 96374; 87635; 96375; 84484; 80048; 85025; 87880; 87804 ×2; 36415; 93005; J1100; C9803; J1885

== ENCOUNTER 2023-10-31 22:11 | Emergency (ER) | payer BC ==
[~2023-10-31] VITALS: Ht 172.7 cm; Wt 81.6 kg
[~2023-10-31 22:11] MED LIST changes: +FAMO-136 PO; +KETO10 PO; +METO-296 PO
[2023-10-31 22:25] LABS: BASOPHILS # (AUTO) 0.06 K/uL (0.00-0.20); BASOPHILS % (AUTO) 0.6 % (0.0-5.0); EOSINOPHILS # (AUTO) 0.22 K/uL (0.00-0.70); EOSINOPHILS % (AUTO) 2.2 % (0.0-8.0); HEMATOCRIT 40.4 % (42-54); IMMATURE GRANULOCYTE ABSOLUTE 0.02 K/uL (0-1); LYMPHOCYTES # (AUTO) 2.1 K/uL (1.0-4.8); LYMPHOCYTES % (AUTO) 21.1 % (21.0-51.0); MEAN CORPUSCULAR HEMOGLOBIN 30.4 pg (27.0-33.0); MEAN CORPUSCULAR HGB CONC 33.9 g/dL (32.0-36.0); MEAN CORPUSCULAR VOLUME 89.6 fL (79-99); MONOCYTES # (AUTO) 0.9 K/uL (0.1-1.0); NEUTROPHILS # (AUTO) 6.7 K/uL (1.8-7.7); NEUTROPHILS % (AUTO) 66.9 % (40.0-77.0); PLATELET COUNT (AUTO) 216 K/uL (130-400); RED BLOOD CELL COUNT(AUTO) 4.51 MIL/uL (4.50-6.20); RED CELL DISTRIBUTION WIDTH 12.9 % (11.0-15.5)
[2023-10-31 22:41] LABS: CREATININE 0.9 mg/dL (0.5-1.3); POTASSIUM 3.9 mmol/L (3.5-5.1)
[2023-10-31 23:00] LABS: B-TYPE NATRIURETIC PEPTIDE 67 pg/mL (0-100)
[2023-11-01] MEDS: ONDANSETRON 4MG INJ IVP ONE (00:25)
[2023-11-01] MEDS: KETOROLAC 15MG/ML VIAL (15MG/ML) IM ONE (00:25)
[2023-11-01] MEDS: NITROGLYCERIN 0.4 MG SL TAB SL PRN (00:26)
[2023-11-01] MEDS: FAMOTIDINE 20MG TAB PO ONE (00:34)
[2023-11-01] MEDS: ASPIRIN 81MG CHEW TAB PO ONE (00:34)
[2023-11-01 01:31] LABS: APPEARANCE,URINE CLEAR (CLEAR); BILIRUBIN,URINE NEGATIVE (NEGATIVE); COLOR,URINE YELLOW (YELLOW); GLUCOSE, URINE (UA) NEGATIVE (NEGATIVE); KETONES,URINE 10 mg/dL (NEGATIVE); LEUKOCYTE ESTERASE ,URINE NEGATIVE Leu/uL (NEGATIVE); NITRATE,URINE NEGATIVE (NEGATIVE); OCCULT BLOOD,URINE NEGATIVE (NEGATIVE); PH,URINE 6.5 (5.0-8.0); PROTEIN,URINE 30 mg/dL (NEGATIVE)
[2023-11-01 01:35] LABS: ADD UA MICROSCOPIC YES
[2023-11-01 01:52] LABS: MUCUS,URINE MOD LPF (None Seen); RBC,URINE 0-1 /HPF (0-1)
[2023-11-01 02:34] LABS: AMPHET/METH SCREEN,URINE NEGATIVE (NEGATIVE); BARBITURATE SCREEN, URINE NEGATIVE (NEGATIVE); BENZODIAZEPINES SCREEN,URINE NEGATIVE (NEGATIVE); CANNABINOID SCREEN,URINE NEGATIVE (NEGATIVE); COCAINE SCREEN,URINE NEGATIVE (NEGATIVE); OPIATE SCREEN,URINE NEGATIVE (NEGATIVE); PHENCYCLIDINE SCREEN,URINE NEGATIVE (NEGATIVE)
[2023-11-01 03:25] VITALS: BP 140/65; PULSE 64; RESP 18; O2SAT 98
[2023-11-01] MEDS ORDERED: ASPIRIN 81MG CHEW TAB PO SCH (09:00)
== END 2023-11-01 03:45 | disposition home or self-care (01) ==
LOC: EDH 22:11
DX: R07.89 Other chest pain (principal); R11.2 Nausea with vomiting, unspecified; E11.9 Type 2 diabetes mellitus without complications; I10 Essential (primary) hypertension; I25.2 Old myocardial infarction; Z79.82 Long term (current) use of aspirin; Z79.899 Other long term (current) drug therapy; Z95.1 Presence of aortocoronary bypass graft
CPT/HCPCS: 99284; 71045; 82550; 84484 ×3; 80048; 83880; 80305; 85025; 36415; 93005 ×2; 81001; 96374; 96372; J2405; J1885

== ENCOUNTER 2023-12-30 15:13 | Emergency (ER) | payer BC ==
[~2023-12-30] VITALS: Ht 172.7 cm; Wt 80.7 kg
[2023-12-30 15:20] VITALS: BP 158/97; PULSE 72; RESP 20; TEMP 97.9
== END 2023-12-30 15:53 | disposition home or self-care (01) ==
LOC: EDH 15:13
DX: M54.42 Lumbago with sciatica, left side (principal); I25.10 Atherosclerotic heart disease of native coronary artery without angina pectoris; I11.0 Hypertensive heart disease with heart failure; Z79.899 Other long term (current) drug therapy; Z79.2 Long term (current) use of antibiotics; Z79.82 Long term (current) use of aspirin; Z95.1 Presence of aortocoronary bypass graft
CPT/HCPCS: 99281

== ENCOUNTER 2023-12-30 19:26 | Emergency (ER) | payer BC ==
[~2023-12-30] VITALS: Ht 172.7 cm; Wt 80.3 kg
--- NOTE | 2023-12-30 19:56 | ERN ---
General Chief Complaint: Nausea,Vomiting,Diarrhea Stated Complaint: VOMITING Time Seen by MD: 19:28 Source: patient, family History of Present Illness Initial Comments Patient is a 63-year-old male coming in to be evaluated for nausea and vomiting. Patient states he was seen here earlier and was diagnosed with sciatica. He states he got home and started presenting with nausea and vomiting. He has had multiple episodes of vomiting. No fever no chills also has experienced some episodes of diarrhea as well. Allergies: Coded Allergies: No Known Drug Allergies (Verified Allergy, Unknown, 09/22/19) Home Meds Active Scripts Famotidine (Pepcid) 20 Mg Tablet, 20 MG PO BID, #60 TAB 2 Refills Prov:CHIKA CHAPPELL Sr., MD 02/15/23 Metoclopramide HCl (Reglan) 10 Mg Tablet, 10 MG PO QIDP PRN for NAUSEA, #20 TAB 1 Refill Prov:CHIKA CHAPPELL Sr., MD 02/15/23 Ketorolac Tromethamine (Toradol) 10 Mg Tab, 10 MG PO TIDP PRN for PAIN LEVEL 7 TO 10, #6 TAB 0 Refills Prov:CHIKA CHAPPELL Sr., MD 02/15/23 Amoxicillin/Potassium Clav (Amox Tr-K Clv 875-125 mg Tab) 1 Each Tablet, 1 EACH PO Q12H, #14 TAB 0 Refills Prov:STEVEN CALIXTO 12/10/21 Pantoprazole Sodium (Pantoprazole Sodium) 40 Mg Tablet.dr, 40 MG PO DAILY for 30 Days, #30 TAB 0 Refills Prov:RAMONA CHONG MD 10/16/20 Reported Medications Isosorbide Mononitrate (Isosorbide Mononitrate ER) 30 Mg Tab.er.24h, 30 MG PO HS, TAB 12/08/21 Metoprolol Tartrate (Metoprolol Tartrate) 50 Mg Tablet, 50 MG PO BID, TAB 10/15/20 Aspirin (ASPIRIN 81 MG ECTAB) 81 Mg Ectab, 81 MG PO DAILY, TAB.EC 10/15/20 Atorvastatin Calcium (LIPITOR) 20 Mg Tab, 20 MG PO DAILY, TAB 09/22/19 Past Medical History Past Medical History: Heart Disease Medical History Other: CABG Past Surgical History: Other Surgical History Other: CABG Family History Family History: Negative Social History Social History: Negative, Lives with family ROS Dictation CONSTITUTIONAL: No chills, no fever, no weakness, no diaphoresis, no malaise. HEAD/FACE: No signs of trauma. EENT: No eye pain, no blurred vision, no tearing, no double vision, no ear pain, no ear discharge, no nose pain, no nasal congestion, no throat pain, no throat swelling, no mouth pain. RESPIRATORY: No cough, no orthopnea, no SOB, no stridor, no wheezing. CARDIOVASCULAR: No chest pain, no edema, no palpitations, no syncope. GASTROINTESTINAL/ABDOMINAL: No abdominal pain, no constipation, no diarrhea, no nausea, no vomiting. GENITOURINARY: No abnormal discharge, no dysuria, no frequent urination, no hematuria. No complaints of pain in the genitals. MUSCULOSKELETAL: No back pain, no gout, no joint pain, no joint swelling, no muscle pain, no muscle stiffness, no neck pain. INTEGUMENTARY: No change in color, no change in hair/nails, no dryness, no lesion, no lumps, no rash. NEUROLOGICAL/PSYCH: No anxiety, not depressed, no emotional problem, no headache, no numbness, no pre-existing deficit, no history of seizures, no tremors, no weakness. HEMATOLOGIC/LYMPHATIC: Not anemic, no history of blood clots, no apparent bleed ing, no bruising, glands not swollen. All Systems Negative, Except as Noted. Physical Exam Physical Exam Dictation VITAL SIGNS: Reviewed. GENERAL APPEARANCE: Alert, oriented x3, no acute distress, obese. HEAD AND FACE: Non-traumatic. EYES: PERRL, pink conjunctivas, eyelid no trauma, anterior chamber clear. EARS: Pinnas intact and no signs of trauma or erythema. Ear canals clear and no discharge. TMs no erythema. NOSE: No discharge, no bleeding. OROPHARYNX: Mouth normal, teeth no caries, tongue pink. Pharynx clear, no erythema. Tonsils no exudates, no abscesses noted. Mucous membrane moist. NECK: Supple, non-tender, no thyromegaly, no masses, no JVD, no bruits. BREAST: Deferred. CHEST: No tenderness, no crepitus, no paradoxical movement, no retractions. LUNGS: Clear, well-ventilated, symmetric, no rales, no wheezing, no rhonchi, no stridor, good breath sounds bilaterally. HEART: Regular rate, regular rhythm, no murmur, no gallops. VASCULAR: No peripheral edema. ABDOMEN: Soft, positive bowel sounds, nondistended, no guarding, nontender, no rebound, no masses no hepatomegaly, no splenomegaly, no Casillas's sign, no hernias. RECTAL: Deferred. GENITAL: Deferred. NEUROLOGICAL: Normal speech, gross motor function intact, gross sensory function intact. MUSCULOSKELETAL: Neck nontender, full range of motion, back nontender, full range of motion. EXTREMITIES: Nontender, full range of motion. SKIN: Color pink, dry, no turgor, no rash, no lacerations, no abrasions, no contusions. LYMPHATICS: Deferred. Results Laboratory and Microbiology Lab and Micro Result Laboratory Tests Test 12/30/23 20:08 12/30/23 20:20 Urine Color LIGHT-YELLOW (YELLOW) Urine Appearance CLEAR (CLEAR) Urine pH 5.5 (5.0-8.0) Urine Specific [place] 1.015 (1.001-1.031) Urine Protein NEGATIVE mg/dL (NEGATIVE) Urine Glucose (UA) NEGATIVE mg/dL (NEGATIVE) Urine Ketones NEGATIVE mg/dL (NEGATIVE) Urine Occult Blood NEGATIVE (NEGATIVE) Urine Nitrate NEGATIVE (NEGATIVE) Urine Bilirubin NEGATIVE mg/dL (NEGATIVE) Urine Urobilinogen 0.2 mg/dL (0.2-1.0) Urine Leukocyte Esterase NEGATIVE Yoel/uL Urine RBC 0-1 /HPF (0-1) Urine WBC 0-1 /HPF (0-1) Urine Squamous Epithelial Cells RARE /HPF (0-2) Urine Bacteria RARE /HPF (None Seen) Urine Hyaline Casts 2-5 /LPF (0-1 /LPF) H Urine Other Casts 1 /LPF (None Seen) Urine Opiates Screen POSITIVE (NEGATIVE) H Urine Barbiturates Screen NEGATIVE (NEGATIVE) Urine Phencyclidine Screen NEGATIVE (NEGATIVE) Urine Amphetamines Screen NEGATIVE (NEGATIVE) Urine Benzodiazepines Screen NEGATIVE (NEGATIVE) Urine Cocaine Screen NEGATIVE (NEGATIVE) Urine Marijuana (THC) Screen NEGATIVE (NEGATIVE) White Blood Count 10.8 K/uL (4.8-10.8) Red Blood Count 5.06 MIL/uL (4.50-6.20) Hemoglobin 15.5 g/dL (14.0-18.0) Hematocrit 45.0 % (42-54) Mean Corpuscular Volume 88.9 fL (79-99) Mean Corpuscular Hemoglobin 30.6 pg (27.0-33.0) Mean Corpuscular Hemoglobin Concent 34.4 g/dL (32.0-36.0) Red Cell Distribution Width 13.2 % (11.0-15.5) Platelet Count 229 K/uL (130-400) Mean Platelet Volume 11.0 fL (7.5-10.5) H Immature Granulocyte % (Auto) 0.3 % (0-1) Neutrophils (%) (Auto) 85.9 % (40.0-77.0) H Lymphocytes (%) (Auto) 6.4 % (21.0-51.0) L Monocytes (%) (Auto) 5.1 % (3.0-13.0) Eosinophils (%) (Auto) 2.1 % (0.0-8.0) Basophils (%) (Auto) 0.2 % (0.0-5.0) Neutrophils # (Auto) 9.3 K/uL (1.8-7.7) H Lymphocytes # (Auto) 0.7 K/uL (1.0-4.8) L Monocytes # (Auto) 0.6 K/uL (0.1-1.0) Eosinophils # (Auto) 0.23 K/uL (0.00-0.70) Basophils # (Auto) 0.02 K/uL (0.00-0.20) Absolute Immature Granulocyte (auto 0.03 K/uL (0-1) Nucleated Red Blood Cells 0.0 % (0.0-0.19) White Cell Morphology Comment See comments Sodium Level 141 mmol/L (136-145) Potassium Level 4.1 mmol/L (3.5-5.1) Chloride Level 103 mmol/L (101-111) Carbon Dioxide Level 29 mmol/L (21-32) Blood Urea Nitrogen 22 mg/dL (7-18) H Creatinine 1.1 mg/dL (0.5-1.3) Glomerular Filtration Rate Calc 76 mL/min (>90) Random Glucose 105 mg/dL (70-105) Total Calcium 9.7 mg/dL (8.5-10.1) Total Bilirubin 0.7 mg/dL (0.2-1.0) Aspartate Amino Transf (AST/SGOT) 33 U/L (10-37) Alanine Aminotransferase (ALT/SGPT) 60 U/L (12-78) Alkaline Phosphatase 80 U/L (50-136) Total Creatine Kinase 118 U/L (21-232) # Total Protein 8.7 g/dL (6.0-8.3) H Albumin 4.6 g/dL (3.5-5.0) Lipase 34 U/L (16-77) Labs Reviewed?: Yes EKG/XRAY/US/CT/MRI EKG Comment 12/30/2023 time 8:46 p.m. Ventricular rate [address] wave elevation or depression IA 171 MDM MDM: Differential diagnosis: Gastroenteritis, viral gastroenteritis, nausea and vomiting, dehydration Rationale: Tests considered and ordered secondary to shared decision making include: Previous outside records reviewed: Old ER visits. Risk of complication and/or morbidity or mortality of patient management: None Medications-Per medication reconciliation Need for hospitalization: Patient does not meet criteria for hospitalization. Need for emergency major/minor surgery: No There are no social concerns with this patient. Prescription drug management Prescriptions will include symptomatic care Patient's prior external medical records from other ER visits were reviewed by me as indicated. Prior testing and results from previous visits were reviewed. Prior tests were taken into account with medical decision making and resource utilization, independent historian/historians were used to obtain complete medical history. I independently interpreted the test that were performed, results were reviewed by me and considered findings on radiology if ordered. Medical management and examination interpretation discussions were had by me with other qualified healthcare professionals as indicated for the patient's care. Patient is a 63-year-old male coming in to be evaluated for nausea vomiting x4 episodes. Patient states he was he has been here earlier due to the sciatic nerve pain. Patient was given medications for pain shortly after that got home started having nausea and vomiting episodes. Upon evaluation in triage patient did have nauseousness and vomiting episodes that brought him in. Laboratory workup negative for acute findings. Throughout ER visit patient has been stable patient did receive GI cocktail, IV Protonix, IV fluids and states he feels much better. Patient will be discharged in stable condition and has been advised to follow up with PCP in 1-2 days to continue monitoring symptoms if any should arise. ED Course Orders Procedure Category Date Status Time Cbc With Differential LAB 12/30/23 Complete 19:49 Comprehensive LAB 12/30/23 Complete Metabolic Panel 19:49 Urinalysis Profile LAB 12/30/23 Complete 19:49 12 Lead Ekg Tracing- EKG 12/30/23 Complete Technical 19:49 Lactated Ringers PHA 12/30/23 Complete 1000ml (Lactated 20:00 Ondansetron 4mg Inj PHA 12/30/23 Complete (Zofran 4mg Inj) 20:00 Pantoprazole 40mg Inj PHA 12/30/23 Complete (Protonix 40mg Inj 20:00 Creatine Kinase, Total LAB 12/30/23 Complete 19:49 Lipase LAB 12/30/23 Complete 19:49 Drug Screen Urine LAB 12/30/23 Complete 19:50 Lidocaine Hcl 2% PHA 12/30/23 Complete Viscous (Lidocaine Hcl 21:00 Mag/Alum/Simeth 30ml PHA 12/30/23 Complete (Maalox Plus 30ml) 21:00 Dicyclomine Hcl PHA 12/30/23 Complete (Bentyl 10mg/5ml 21:00 Current Medications Medications (Trade) Dose Ordered Sig/Sabine Route PRN Reason Start Time Stop Time Status Last Admin Dose Admin Al Hydroxide/Mg Hydroxide (MAALox PLUS 30ML) 30 ml ONCE ONCE PO 12/30/23 21:00 12/30/23 21:01 DC 12/30/23 21:04 Dicyclomine HCl (Bentyl 10mg/5ml Syrup) 10 mg ONCE ONCE PO 12/30/23 21:00 12/30/23 21:01 DC 12/30/23 21:04 Lactated Ringer's 1,000 ml @ 0 mls/hr ONCE ONCE IV 12/30/23 20:00 12/30/23 20:01 DC 12/30/23 20:23 Lidocaine HCl (Lidocaine HCl 2% Viscous) 10 ml ONCE ONCE PO 12/30/23 21:00 12/30/23 21:01 DC 12/30/23 21:04 Ondansetron HCl (zoFRAN 4MG INJ) 4 mg ONCE ONCE IVP 12/30/23 20:00 12/30/23 20:01 DC 12/30/23 20:24 Pantoprazole Sodium (PROTonix 40MG INJ) 40 mg ONCE ONCE IVP 12/30/23 20:00 12/30/23 20:01 DC 12/30/23 20:24 Vital Signs Date Time Temp Pulse Resp B/P (MAP) Pulse Ox O2 Delivery O2 Flow Rate FiO2 12/30/23 20:33 97.9 100 22 163/83 100 Room Air* 0 21 12/30/23 19:28 98.8 90 18 146/79 100 Room Air 0 DX & DISP Disposition: Discharge Departure Impression: Primary Impression: Viral gastroenteritis Condition: Stable Referrals: JUNIOR GORDILLO DO (PCP) Time of Disposition: 21:11 PALLAVI CHANG MD Dec 30, 2023 19:56
[2023-12-30 20:22] LABS: APPEARANCE,URINE CLEAR (CLEAR); BILIRUBIN,URINE NEGATIVE (NEGATIVE); COLOR,URINE LIGHT-YELLOW (YELLOW); GLUCOSE, URINE (UA) NEGATIVE (NEGATIVE); KETONES,URINE NEGATIVE (NEGATIVE); LEUKOCYTE ESTERASE ,URINE NEGATIVE Leu/uL (NEGATIVE); NITRATE,URINE NEGATIVE (NEGATIVE); OCCULT BLOOD,URINE NEGATIVE (NEGATIVE); PH,URINE 5.5 (5.0-8.0); PROTEIN,URINE NEGATIVE (NEGATIVE); UROBILINOGEN,URINE 0.2 mg/dL (0.2-1.0)
[2023-12-30] MEDS: LACTATED RINGERS 1000ML 1,000 ML IV ONE (20:23)
[2023-12-30] MEDS: ondanSETRON 4MG INJ IVP ONE (20:24)
[2023-12-30] MEDS: PANTOPrazole 40 MG/VIAL IVP ONE (20:24)
[2023-12-30 20:25] LABS: ADD UA MICROSCOPIC YES
[2023-12-30 20:26] LABS: BACTERIA,URINE RARE /HPF (None Seen); MUCUS,URINE RARE LPF (None Seen); OTHER CASTS, URINE 1 /LPF (None Seen); RBC,URINE 0-1 /HPF (0-1); SQUAMOUS EPITHELIAL CELL,UR RARE /HPF (0-2); WBC,URINE 0-1 /HPF (0-1)
[2023-12-30 20:27] LABS: BASOPHILS # (AUTO) 0.02 K/uL (0.00-0.20); BASOPHILS % (AUTO) 0.2 % (0.0-5.0); EOSINOPHILS # (AUTO) 0.23 K/uL (0.00-0.70); EOSINOPHILS % (AUTO) 2.1 % (0.0-8.0); IMMATURE GRANULOCYTE ABSOLUTE 0.03 K/uL (0-1); LYMPHOCYTES # (AUTO) 0.7 K/uL (1.0-4.8); LYMPHOCYTES % (AUTO) 6.4 % (21.0-51.0); MEAN CORPUSCULAR HEMOGLOBIN 30.6 pg (27.0-33.0); MEAN CORPUSCULAR HGB CONC 34.4 g/dL (32.0-36.0); MEAN CORPUSCULAR VOLUME 88.9 fL (79-99); MONOCYTES # (AUTO) 0.6 K/uL (0.1-1.0); MONOCYTES % (AUTO) 5.1 % (3.0-13.0); NEUTROPHILS # (AUTO) 9.3 K/uL (1.8-7.7); NEUTROPHILS % (AUTO) 85.9 % (40.0-77.0); PLATELET COUNT (AUTO) 229 K/uL (130-400); RED BLOOD CELL COUNT(AUTO) 5.06 MIL/uL (4.50-6.20); RED CELL DISTRIBUTION WIDTH 13.2 % (11.0-15.5); WHITE BLOOD COUNT (AUTO) 10.8 K/uL (4.8-10.8)
[2023-12-30 20:30] LABS: AMPHET/METH SCREEN,URINE NEGATIVE (NEGATIVE); BARBITURATE SCREEN, URINE NEGATIVE (NEGATIVE); BENZODIAZEPINES SCREEN,URINE NEGATIVE (NEGATIVE); CANNABINOID SCREEN,URINE NEGATIVE (NEGATIVE); COCAINE SCREEN,URINE NEGATIVE (NEGATIVE); OPIATE SCREEN,URINE POSITIVE (NEGATIVE); PHENCYCLIDINE SCREEN,URINE NEGATIVE (NEGATIVE)
[2023-12-30 20:37] LABS: CREATININE 1.1 mg/dL (0.5-1.3); POTASSIUM 4.1 mmol/L (3.5-5.1)
[2023-12-30 20:42] LABS: ALBUMIN 4.6 g/dL (3.5-5.0); BILIRUBIN,TOTAL 0.7 mg/dL (0.2-1.0); TOTAL PROTEIN, SERUM 8.7 g/dL (6.0-8.3)
[2023-12-30] MEDS: DICYCLOMINE HCL 10 MG/5 ML ML PO ONE (21:04)
[2023-12-30] MEDS: MAG/ALUM/SIMETH 30 ML UDCUP PO ONE (21:04)
[2023-12-30] MEDS: LIDOCAINE HCL 2% VISCOUS 15 ML UDCUP PO ONE (21:04)
--- NOTE | 2023-12-30 21:08 | EKG ---
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
[2023-12-30 22:03] VITALS: BP 152/75; PULSE 85; RESP 16; TEMP 97.9; O2SAT 100
== END 2023-12-30 22:06 | disposition home or self-care (01) ==
LOC: EDH 19:26
DX: A08.4 Viral intestinal infection, unspecified (principal); R11.2 Nausea with vomiting, unspecified; Z79.899 Other long term (current) drug therapy; Z79.2 Long term (current) use of antibiotics; Z79.82 Long term (current) use of aspirin; Z98.890 Other specified postprocedural states; Z95.1 Presence of aortocoronary bypass graft
CPT/HCPCS: 99284; 82550; 80053; 80305; 83690; 85025; 81001; 36415; 96374; 96361; 96375; 99281; 93005; J7120; J2405; J2470